=== PATIENT | male | born 1965 | race Caucasian/White ===

== ENCOUNTER 2020-10-07 09:22 | Emergency (ER) | payer BC ==
--- NOTE | 2020-10-07 09:49 | EDM.PDOC ---
ED HPI GENERAL MEDICAL PROBLEM - General Chief Complaint: Syncope Stated Complaint: DIZZY/SYNCOPE Time Seen by Provider: 10/07/20 09:39 - History of Present Illness INITIAL COMMENTS - FREE TEXT/NARRATIVE: 55-year-old male presents the emergency room with dizziness. Patient was working under a vehicle at work and he noticed he was a little dizzy when he got down there. He attempted to roll 1-1 side and the dizziness became really severe. Some coworkers helped him up and then he briefly passed out. The patient has not had problems like this in the past. Patient does noticed that when he looks to the right it is much worse than when he looks to the left. Patient denies any ringing or buzzing in his ears he is not getting over any recent upper respiratory tract or other type of infections. He has not had problems with allergic rhinitis. He has not had associated nausea or vomiting with this. The patient fell about a month ago hitting the right side of his head since that time he has intermittent headaches in the right frontal region. He struck his head on the side however. Right Temporal Head Pain Score (Numeric/FACES): 2 - Related Data Allergies Allergy/AdvReac Type Severity Reaction Status Date / Time No Known Allergies Allergy Verified 10/07/20 09:31 Home Meds: Home Meds Meclizine [Antivert] 25 mg PO Q6H PRN #30 tab 10/07/20 [Rx] Past Medical History Musculoskeletal History: Reports: Other (See Below) Other Musculoskeletal History: back surgery in May 2015 - Infectious Disease History Infectious Disease History: Reports: Influenza - Past Surgical History GI Surgical History: Reports: Appendectomy, Hernia Repair/Other Neurological Surgical History: Reports: Lumbar Spine Musculoskeletal Surgical History: Reports: Other (See Below) Social & Family History - Family History Oncologic: Reports: Breast - Living Situation & Occupation Living situation: Reports: , with Family Occupation: Employed ED ROS GENERAL - Review of Systems Review Of Systems: See Below Constitutional: Reports: No Symptoms HEENT: Reports: Vertigo Respiratory: Reports: No Symptoms Cardiovascular: Reports: No Symptoms GI/Abdominal: Reports: No Symptoms. Denies: Nausea : Reports: No Symptoms Musculoskeletal: Reports: Other (Patient has right-sided neck tightness and spasm) ED EXAM, GENERAL - Physical Exam Exam: See Below Exam Limited By: No Limitations General Appearance: Alert, No Apparent Distress Ears: Normal External Exam, Normal Canal, Hearing Grossly Normal, Normal TMs Nose: Normal Inspection, Normal Mucosa, No Blood Throat/Mouth: Normal Inspection, Normal Lips, Normal Teeth, Normal Gums, Normal Oropharynx, Normal Voice, No Airway Compromise Head: Atraumatic, Normocephalic Neck: Normal Inspection, Full Range of Motion, Other (He has some tenderness at the base of the skull in the paraspinous muscles on this right side are tight and tender with palpation this extends down his spine and in towards the shoulder. Palpation of this area seems to trigger the headaches he has been having.). No: Tender Midline Respiratory/Chest: No Respiratory Distress, Lungs Clear, Normal Breath Sounds Cardiovascular: Regular Rate, Rhythm, No Edema, No Murmur GI/Abdominal: Normal Bowel Sounds, Soft, Non-Tender Neurological: Other (Hallpike's maneuver was strikingly positive with the patient looking to the right however he would not keep his eyes open well enough to assess for nystagmus. When performed to the left he had some dizziness when his head went off the edge of the bed. This was not as striking as looking to the right) Psychiatric: Normal Affect Skin Exam: Warm, Dry Lymphatic: No Adenopathy #1 Interpretation EKG Date: 10/07/20 Rhythm: NSR Rate (Beats/Min): 56 [place]: Normal P-Wave: Present QRS: Other (Low voltage mostly in the extremity leads) ST-T: Normal QT: Normal Comparison: No Change (No significant change noted from 03/19/2015) EKG Interpretation Comments: Borderline EKG no changes from March 2015 Course - Vital Signs Last Recorded V/S: Last Vital Signs Temp 36.2 C 10/07/20 09:39 Pulse 61 10/07/20 09:39 Resp 16 10/07/20 09:39 BP 134/90 10/07/20 09:39 Pulse Ox 97 10/07/20 09:39 Orthostatic Blood Pressure [ 136/100 Standing] Orthostatic Blood Pressure [ 143/90 Sitting] Orthostatic Blood Pressure [ 134/90 Supine] - Orders/Labs/Meds Orders: Active Orders 24 hr Category Date Time Status EKG Documentation Completion [RC] STAT Care 10/07/20 09:55 Active Labs: Laboratory Tests 10/07/20 10/07/20 Range/Units 10:10 10:10 WBC 7.22 (4.23-9.07) K/mm3 RBC 4.59 L (4.63-6.08) M/mm3 Hgb 15.1 (13.7-17.5) gm/dl Hct 45.3 (40.1-51.0) % MCV 98.7 H D (79.0-92.2) fl MCH 32.9 H (25.7-32.2) pg MCHC 33.3 (32.2-35.5) g/dl RDW Std Deviation 45.4 H (35.1-43.9) fL Plt Count 249 (163-337) K/mm3 MPV 8.7 L (9.4-12.3) fl Neut % (Auto) 62.4 (34.0-67.9) % Lymph % (Auto) 28.5 (21.8-53.1) % [place] % (Auto) 5.5 (5.3-12.2) % Eos % (Auto) 2.9 (0.8-7.0) Baso % (Auto) 0.6 (0.1-1.2) % Neut # (Auto) 4.50 (1.78-5.38) K/mm3 Lymph # (Auto) 2.06 (1.32-3.57) K/mm3 [place] # (Auto) 0.40 (0.30-0.82) K/mm3 Eos # (Auto) 0.21 (0.04-0.54) K/mm3 Baso # (Auto) 0.04 (0.01-0.08) K/mm3 Sodium 141 (136-145) mEq/L Potassium 3.8 (3.5-5.1) mEq/L Chloride 105 (98-107) mEq/L Carbon Dioxide 25 (21-32) mEq/L Anion Gap 14.8 (5-15) BUN 14 (7-18) mg/dL Creatinine 0.9 (0.7-1.3) mg/dL Est Cr Clr Drug Dosing 110.84 mL/min Estimated GFR (MDRD) > 60 (>60) mL/min BUN/Creatinine Ratio 15.6 (14-18) Glucose 104 H (70-99) mg/dL Calcium 8.5 (8.5-10.1) mg/dL Total Bilirubin 0.7 (0.2-1.0) mg/dL AST 22 (15-37) U/L ALT 33 (16-63) U/L Alkaline Phosphatase 60 (46-116) U/L Total Protein 6.8 (6.4-8.2) g/dl Albumin 3.8 (3.4-5.0) g/dl Globulin 3.0 gm/dL Albumin/Globulin Ratio 1.3 (1-2) TSH 3rd Generation 1.708 (0.358-3.74) uIU/mL Meds: Medications Discontinued Medications Generic Name Dose Route Start Last Admin Trade Name Freq PRN Reason Stop Dose Admin Meclizine HCl 12.5 mg 10/07/20 11:57 10/07/20 12:22 Meclizine 12.5 Mg Tab PO 10/07/20 11:58 12.5 mg ONETIME ONE Administration - Re-Assessments/Exams Free Text/Narrative Re-Assessment/Exam: 10/07/20 12:46 After reviewing the labs with the patient became obvious that his symptoms act ually been going on quite a bit longer and seem to start right after he did hit his head when he had got a head CT which was unrevealing. Patient was given 12.5 mg of meclizine and is feeling quite a bit better at this time. I am to try and get him scheduled to see primary care provider this week and see if he can get in and be referred to physical therapy. Audiology evaluation could be considered. Departure - Departure Time of Disposition: 12:55 Disposition: Home, Self-Care 01 Clinical Impression: Vertigo - Discharge Information Prescriptions: Meclizine [Antivert] 25 mg PO Q6H PRN #30 tab PRN Reason: Dizziness Instructions: Vertigo, [id number] Referrals: PCP,None [Primary Care Provider] - Forms: ED Department Discharge Additional Instructions: Return to the emergency room with any questions problems or worsening symptoms. Tomorrow morning at 9:30 you have an appointment at the hospital clinic care. Show up at 9:00. Talk to them about getting scheduled to see physical therapy to get you on some exercise programs to minimize your symptoms. I sent a prescription for meclizine to the [facility]. Take 1/2-1 every 6 hours only if absolutely necessary. Always start out with 1/2 pill as you want to minimize the dose and amount of this medication that you use. Please quit smoking. Sepsis Event Note (ED) - Focused Exam Vital Signs: Vital Signs Temp Pulse Resp BP Pulse Ox 10/07/20 09:39 36.2 C 61 16 134/90 97 - My Orders Last 24 Hours: My Active Orders 10/07/20 09:55 EKG Documentation Completion [RC] STAT - Assessment/Plan Last 24 Hours: My Active Orders 10/07/20 09:55 EKG Documentation Completion [RC] STAT
[2020-10-07 09:55] VITALS: BP 134/90; PULSE 61
[2020-10-07] MEDS ORDERED: Meclizine 12.5 MG Tab PO ONE (11:57)
--- NOTE | 2020-10-07 12:21 | CT ---
Head CT Technique: Multiple axial sections through the brain were obtained. Intravenous contrast was not utilized. Reconstructed coronal and sagittal images were obtained. Comparison: No prior intracranial imaging is available. Findings: Ventricles along with basal cisterns and sulci over the convexities are within normal limits for the patient's age. No abnormal parenchymal densities are seen. No evidence of intracranial hemorrhage. No midline shift or mass-effect is appreciated. Bone window settings were reviewed. Slight mucosal thickening is scattered within the ethmoid sinuses. Other visualized paranasal sinuses and mastoid sinuses are within normal limits. No acute calvarial abnormality is appreciated. Impression: 1. Minimal sinus findings believed to be incidental. 2. Nothing acute is appreciated on noncontrast head CT exam. Diagnostic code #2
== END 2020-10-07 13:13 | disposition home or self-care (01) ==
LOC: JD.ED 09:22
DX: R42 Dizziness and giddiness (principal); R51.9 Headache, unspecified
CPT/HCPCS: 36415; 70450; 80053; 84443; 85025; 93005; 99284; A9270; 93010; 99283